=== PATIENT | male | born 1995 | race American Indian/Alaskan Native ===

== ENCOUNTER 2017-04-22 14:19 | Emergency (ER) | payer SELFPAY ==
--- NOTE | 2017-04-22 15:20 | Emergency Department Report ---
Chief Complaint: Urogenital-Male Stated Complaint: STI Time Seen by Provider: 04/22/17 15:16 - HPI History of Present Illness: PT states a few weeks ago, he had unprotected sex. PT states that 45 min [employer] his partner came to his house with paperwork that states she was diagnosed with Syphilis. She advised pt to go get checked. - ROS Review of Systems: - rash - penile discharge - penile lesions - Exam Physical Exam: pt looks well, non toxic. gcs 15 MSE screening note: Focused history and physical exam performed. Due to findings the following was ordered: labs ED Disposition for MSE Condition: Stable
[2017-04-22] MEDS ORDERED: BICILLIN L-A IM ONE (19:31)
--- NOTE | 2017-04-22 19:37 | Emergency Department Report ---
ED Male HPI - General Chief complaint: Urogenital-Male Stated complaint: STI Time Seen by Provider: 04/22/17 15:16 Source: patient Mode of arrival: Ambulatory Limitations: No Limitations - History of Present Illness Initial comments: 21-year-old male no significant past medical history presents with complaint of concern for exposure to syphilis. Patient states that his female sex partner tested positive for syphilis within the last few days. He states that she was tested for several STDs and syphilis was the one that was positive. Patient is requesting treatment based on exposure to syphilis with this sex partner. Patient denies fevers chills denies any rash denies any genital discharge and or lesions. MD Complaint: other Onset/Timin - Related Data Sexually active: Yes (multiple sexual partners) Allergies Allergy/AdvReac Type Severity Reaction Status Date / Time No Known Allergies Allergy Verified 04/22/17 15:13 ED Review of Systems ROS: Stated complaint: STI Other details as noted in HPI Comment: possible exposure to syphilis Constitutional: denies: chills, fever Eyes: denies: eye pain, eye discharge, vision change ENT: denies: ear pain, throat pain Respiratory: denies: cough, shortness of breath, wheezing Cardiovascular: denies: chest pain, palpitations Endocrine: no symptoms reported Gastrointestinal: denies: abdominal pain, nausea, diarrhea Genitourinary: denies: urgency, dysuria Musculoskeletal: denies: back pain, joint swelling, arthralgia Skin: denies: rash, lesions Neurological: denies: headache, weakness, paresthesias Psychiatric: denies: anxiety, depression Hematological/Lymphatic: denies: easy bleeding, easy bruising ED Past Medical Hx - Past Medical History Previous Medical History?: No - Surgical History Past Surgical History?: No - Social History Smoking Status: Never Smoker Substance Use Type: Alcohol ED Physical Exam - General Limitations: No Limitations General appearance: alert, in no apparent distress - Head Head exam: Present: atraumatic, normocephalic - Eye Eye exam: Present: normal appearance, PERRL, EOMI - ENT ENT exam: Present: mucous membranes moist - Neck Neck exam: Present: normal inspection - Respiratory Respiratory exam: Present: normal lung sounds bilaterally. Absent: respiratory distress - Cardiovascular Cardiovascular Exam: Present: regular rate, normal rhythm. Absent: systolic murmur, diastolic murmur, rubs, gallop - GI/Abdominal GI/Abdominal exam: Present: soft, normal bowel sounds - Rectal Rectal exam: Present: deferred - exam: Present: normal inspection External exam: Present: normal external exam - Extremities Exam Extremities exam: Present: normal inspection - Back Exam Back exam: Present: normal inspection - Neurological Exam Neurological exam: Present: alert, oriented X3 - Psychiatric Psychiatric exam: Present: normal affect, normal mood - Skin Skin exam: Present: warm, dry, intact, normal color. Absent: rash ED Course Vital Signs 04/22/17 15:14 Temperature 98.2 F Pulse Rate 78 Respiratory 16 Rate Blood Pressure 129/96 O2 Sat by Pulse 100 Oximetry ED Medical Decision Making - Medical Decision Making A/P: STD exposure, possible syphilis exposure 1-will send RPR titer for confirmation of syphilis exposure. As per up-[email or web address]- [email or web address] will treat patient with 2.4 million units of penicillin G https:// [email or web address]= [email or web address]&search=syphilis%20treatment&[email or web address]& [id number] 2-will provide patient with follow-up for primary care and infectious disease 3-patient is exhibiting no symptoms currently based on history and physical exam 4-Chlamydia gonorrhea culture sent Critical care attestation.: If time is entered above; I have spent that time in minutes in the direct care of this critically ill patient, excluding procedure time. ED Disposition Clinical Impression: Exposure to STD, Syphilis contact Disposition: TO HOME OR SELFCARE Is pt being admited?: No Does the pt Need Aspirin: No Condition: Stable Instructions: Syphilis (ED), Safe Sex (ED), Sexually Transmitted Diseases (ED) Referrals: [facility] [Provider Group] - 3-5 Days [facility] [Outside] - 3-5 Days ALBERTO WHITE MD [Staff Physician] - 3-5 Days [facility] [Outside] - 3-5 Days [facility] [Outside] - 3-5 Days
[2017-04-22 23:02] VITALS: BP 133/93
== END 2017-04-22 20:25 | disposition home or self-care (01) ==
LOC: ED 14:19
DX: Z20.2 Contact with and (suspected) exposure to infections with a predominantly sexual mode of transmission (principal)
CPT/HCPCS: 36415; 86592; 87591; 96372; 99282; J0561

== ENCOUNTER 2022-04-01 23:54 | Emergency (ER) | payer SELFPAY ==
[2022-04-02 01:25] VITALS: BP 126/82
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
== END 2022-04-02 03:15 | disposition home or self-care (01) ==
LOC: ED 23:54
DX: S16.1XXA Strain of muscle, fascia and tendon at neck level, initial encounter (principal); V89.2XXA Person injured in unspecified motor-vehicle accident, traffic, initial encounter; Y93.89 Activity, other specified; Y92.89 Other specified places as the place of occurrence of the external cause; Y99.8 Other external cause status
CPT/HCPCS: 99281